=== PATIENT | male | born 1950 | race Caucasian/White ===

== ENCOUNTER 2020-02-28 14:34 | Emergency (ER) | payer OTHER ==
[2020-02-28] MEDS ORDERED: cephALEXin 250 MG CAPSULE PO STA (15:10)
[2020-02-28] MEDS ORDERED: TETANUS/DIPHTHERIA/PERTUSSIS 0.5 ML SYRINGE IM ONE (15:10)
[2020-02-28] MEDS ORDERED: BUFFERED LIDOCAINE 10 ML SYRINGE SUBQ STA (15:11)
[2020-02-28] MEDS ORDERED: BUPIVACAINE 0.5% PF 10 ML VIAL SUBQ STA (15:11)
--- NOTE | 2020-02-28 15:12 | ED Physician Documentation ---
PD HPI UPPER EXT INJURY - Stated complaint Stated Complaint: LT HAND LAC - Chief complaint Chief Complaint: Laceration - History obtained from History obtained from: Patient - Additonal information Additional information: 70-year-old gentleman with unknown tetanus status was removing a piece of wood from a table saw, the blade was still running and suffered lacerations to the second and fourth fingers of the left hand. Review of Systems Constitutional: reports: Reviewed and negative Throat: reports: Reviewed and negative Cardiac: reports: Reviewed and negative PD PAST MEDICAL HISTORY - Past Medical History Cardiovascular: None Respiratory: None Neuro: None Endocrine/Autoimmune: None GI: Hiatal hernia : None HEENT: None Psych: ADD/ADHD Musculoskeletal: None Derm: None - Past Surgical History Past Surgical History: Yes HEENT: Tonsil/Adenoidectomy - Present Medications Home Medications: Ambulatory Orders Medication Instructions Recorded Confirmed Cephalexin [Keflex] 500 mg PO Q6H #28 capsule 02/28/20 Hydrocodone/Acetaminophen 1 - 2 tab PO Q6H PRN #15 tablet 02/28/20 [Hydrocodone-Acetamin 5-325 mg] - Allergies Allergies/Adverse Reactions: Allergies Allergy/AdvReac Type Severity Reaction Status Date / Time No Known Drug Allergies Allergy Verified 02/28/20 14:39 - Social History Does the pt smoke?: No Smoking Status: Never smoker PD ED PE NORMAL - Vitals Vital signs reviewed: Yes - General General: Alert and oriented X 3, No acute distress - Extremities Extremities: Other (see mdm) - Neuro Neuro: Alert and oriented X 3, Normal speech Results - Vitals Vitals: Vital Signs - 24 hr 02/28/20 14:39 Temperature 36.5 C Heart Rate 66 Respiratory 18 Rate Blood Pressure 119/70 O2 Saturation 100 Oxygen O2 Source Room air Procedures - Laceration (location) L hand Length in cm: 4 Wound type: Other (Complex lacerations of the second through fifth fingers. The second finger was rongeured back bone hinton and then closed with some deep 5-0 Vicryl. Then superficial 4-0 nylon.) Neurovascular status: Sensory intact Tendon involvement: Tendon Injury Anesthesia: Lidocaine 1%, Marcaine 0.5%, With bicarb Wound Preparation: Hibiclens, Irrigated copiously NS Skin layer closure: Other (The fourth finger was partially closed where it could be with 4-0 nylon and 2 sutures in the third finger and one suture in the fifth finger) Other: Tetanus booster given Complexity: Complex PD MEDICAL DECISION MAKING - ED course ED course: He has laceration of the dorsum of the left second finger, the nail is completely gone and most of the base of the nailbed is gone down to bone. There is some open area. There is a small laceration on the radial side of the third finger. And one at the tip of the fifth finger. There is extensive laceration of the dorsum of the left fourth finger with tissue loss. It looks like the extensor tendon is abraded or frayed and he does not have any strength in extension. The second finger required some rongeuring. The wounds were closed as well as could be. There was some tissue loss. Also an extensor tendon laceration of the fourth finger. He is referred to hand surgery. Placed in a splint. Departure - Departure Disposition: 01 Home, Self Care Clinical Impression: Multiple lacerations Open fracture of phalanx of digit of hand Qualifiers: Encounter type: initial encounter Qualified Code(s): S62.609B - Fracture of unspecified phalanx of unspecified finger, initial encounter for open fracture Injury of extensor tendon of hand Qualifiers: Encounter type: initial encounter Laterality: left Qualified Code(s): S66.902A - Unspecified injury of unspecified muscle, fascia and tendon at wrist and hand level, left hand, initial encounter Condition: Good Record reviewed to determine appropriate education?: Yes Instructions: ED Fx Finger Open, ED Laceration Tendon Prescriptions: Hydrocodone/Acetaminophen [Hydrocodone-Acetamin 5-325 mg] 1 - 2 tab PO Q6H PRN #15 tablet PRN Reason: Pain Cephalexin [Keflex] 500 mg PO Q6H #28 capsule Comments: You have an open fracture of the second finger, the tip was rongeured back and it was closed primarily. You have an extensor tendon laceration at the distal phalanx of the fourth finger. For these injuries you need to follow-up with a hand surgeon, the closest is in [place], the phone number is [phone]. If able though it may be better for you to follow-up at the OR in [place]. Looks like the phone number there is [phone]. Elevated and keep the splint on and dry. Do not remove it. You need to see a hand surgeon in a week at the outside.
[2020-02-28 16:07] VITALS: BP 120/71
--- NOTE | 2020-03-02 12:25 | XRAY Report ---
PROCEDURE: Hand 3 View LT INDICATIONS: hand inj, 2nd/4th fingers TECHNIQUE: 4 views of the hand(s) acquired. COMPARISON: None FINDINGS: There is a soft tissue and bony amputation of the tip of the index finger. Soft tissue injury of the tip of the ring finger is also seen without underlying bony injury. No radiopaque foreign bodies are seen. IMPRESSION: 1. Soft tissue and bony amputation of the tip of the left index finger. 2. Soft tissue injury of the tip of the fourth finger without underlying bony abnormality. Reviewed by: Miki Patel on 02/28/2020 4:07 PM PDT Approved by: Miki Patel on 02/28/2020 4:07 PM PDT Station ID: [id number]
== END 2020-02-28 16:33 | disposition home or self-care (01) ==
LOC: ED 14:34
DX: S62.631B Displaced fracture of distal phalanx of left index finger, initial encounter for open fracture (principal); S66.325A Laceration of extensor muscle, fascia and tendon of left ring finger at wrist and hand level, initial encounter; S61.213A Laceration without foreign body of left middle finger without damage to nail, initial encounter; S61.217A Laceration without foreign body of left little finger without damage to nail, initial encounter; W31.2XXA Contact with powered woodworking and forming machines, initial encounter; Z23 Encounter for immunization
CPT/HCPCS: 13132; 73130; 90471; 90715; 99283; A9270